=== PATIENT | male | born 1950 | race Caucasian/White ===

== ENCOUNTER → 2016-11-20 | Outpatient (CLI) | payer MEDICARE, OTHER | LOC: EMI 09:00 | DX: C73 Malignant neoplasm of thyroid gland (principal); C77.1 Secondary and unspecified malignant neoplasm of intrathoracic lymph nodes; C78.00 Secondary malignant neoplasm of unspecified lung; C79.51 Secondary malignant neoplasm of bone; R22.0 Localized swelling, mass and lump, head | CPT/HCPCS: 70553; A9577; J7050 ==

== ENCOUNTER → 2016-12-31 | Outpatient (CLI) | payer MEDICARE, OTHER | LOC: CT 13:00 | DX: C73 Malignant neoplasm of thyroid gland (principal); C77.1 Secondary and unspecified malignant neoplasm of intrathoracic lymph nodes; C78.00 Secondary malignant neoplasm of unspecified lung ==

== ENCOUNTER → 2017-01-01 | Outpatient (CLI) | payer MEDICARE, OTHER | LOC: NM 09:00 | DX: C73 Malignant neoplasm of thyroid gland (principal); C77.1 Secondary and unspecified malignant neoplasm of intrathoracic lymph nodes; C78.00 Secondary malignant neoplasm of unspecified lung | CPT/HCPCS: 78306; A9503 ==

== ENCOUNTER → 2017-01-07 | Outpatient (CLI) | payer MEDICARE, OTHER | LOC: CT 10:00 | DX: C73 Malignant neoplasm of thyroid gland (principal); C77.1 Secondary and unspecified malignant neoplasm of intrathoracic lymph nodes; C78.00 Secondary malignant neoplasm of unspecified lung; K82.8 Other specified diseases of gallbladder; I71.4 Abdominal aortic aneurysm, without rupture | CPT/HCPCS: 71260; J7050; Q9962 ==